=== PATIENT | male | born 1970 | race Caucasian/White ===

== ENCOUNTER 2018-10-25 02:25 | Inpatient (IN) | payer MEDICAID ==
[~2018-10-25] VITALS: Ht 176.5 cm; Wt 95.3 kg
[2018-10-25 02:25] VITALS: BP_SYST 154
[~2018-10-25 02:25] MED LIST: ALPR1TAB2 PO; BENA40TA8 PO; HYDR25TA4 PO
[2018-10-25] MEDS ORDERED: FUROSEMIDE 20 MG TABLET PO ONE (06:45)
[2018-10-25 07:01] LABS: HEMOGLOBIN 14.7 g/dL (14.0-18.0); WHITE BLOOD COUNT (AUTO) 3.1 K/uL (4.8-10.8)
[2018-10-25 07:08] LABS: HEMATOCRIT 41.9 % (36-54); MEAN CORPUSCULAR HEMOGLOBIN 34 pg (27-31); MEAN CORPUSCULAR HGB CONC 35 % (32-36); MEAN CORPUSCULAR VOLUME 98 fL (79.0-98.0); RED BLOOD CELL COUNT(AUTO) 4.27 MIL/uL (4.2-6.2); RED CELL DISTRIBUTION WIDTH 14.6 % (9.0-15.0)
[2018-10-25 07:12] LABS: PLATELET COUNT (AUTO) 42 K/uL (130-430)
[2018-10-25 07:19] LABS: ALBUMIN 3.4 g/dL (3.4-4.8); CALCIUM 8.4 mg/dL (8.4-11.0); CREATININE 0.58 mg/dL (0.55-1.30); POTASSIUM 3.3 mmol/L (3.5-5.1); TOTAL BILIRUBIN 5.7 mg/dL (0.0-1.0)
[2018-10-25 07:45] LABS: BASOPHILS % (MANUAL) 0 % (0-2); EOSINOPHILS % (MANUAL) 2 % (0-7); LYMPHOCYTES % (MANUAL) 32 % (20-46); MONOCYTES % (MANUAL) 6 % (0-11)
[2018-10-25 09:00] VITALS: BP_SYST 146
[2018-10-25] MEDS ORDERED: ONDANSETRON HCL 4 MG/2 ML VIAL IVP PRN (10:00)
[2018-10-25] MEDS ORDERED: ACETAMINOPHEN 325 MG TABLET PO PRN (10:00)
[2018-10-25] MEDS ORDERED: POTASSIUM CHLORIDE 20 MEQ TAB.PRT.SR PO ONE (10:00)
[2018-10-25] MEDS ORDERED: ALPRAZolam 0.25 MG TABLET PO SCH (10:15)
[2018-10-25] MEDS: CEPHALEXIN 500 MG CAPSULE PO SCH ×2 (11:07→18:19)
[2018-10-25 11:40] VITALS: BP_SYST 142
[2018-10-25 16:03] VITALS: BP_SYST 140
[2018-10-25 20:00] VITALS: BP_SYST 143
[2018-10-25] MEDS: FUROSEMIDE 20 MG TABLET PO SCH (20:27)
[2018-10-25] MEDS: HYDROcodone/ACETAMIN 5-325 MG TAB (NORCO/ VICODIN) PO PRN (20:31)
[2018-10-26] VITALS: BP_SYST 153
[2018-10-26] MEDS: CEPHALEXIN 500 MG CAPSULE PO SCH ×3 (00:05→11:44)
[2018-10-26 06:58] LABS: ALBUMIN 3.2 g/dL (3.4-4.8); CALCIUM 8.2 mg/dL (8.4-11.0); CREATININE 0.51 mg/dL (0.55-1.30); POTASSIUM 3.6 mmol/L (3.5-5.1); TOTAL BILIRUBIN 7.3 mg/dL (0.0-1.0)
[2018-10-26 07:45] VITALS: BP_SYST 152
[2018-10-26 07:52] LABS: BASOPHILS % (AUTO) 0.7 % (0.0-2.0); EOSINOPHILS # (AUTO) 0.1 K/uL (0.0-0.4); HEMATOCRIT 40.9 % (36-54); HEMOGLOBIN 14.3 g/dL (14.0-18.0); LYMPHOCYTES # (AUTO) 0.7 K/uL (1.0-5.5); LYMPHOCYTES % (AUTO) 19.8 % (20.5-51.5); MEAN CORPUSCULAR HEMOGLOBIN 35 pg (27-31); MEAN CORPUSCULAR HGB CONC 35 % (32-36); MEAN CORPUSCULAR VOLUME 99 fL (79.0-98.0); MONOCYTES # (AUTO) 0.4 K/uL (0.0-1.0); MONOCYTES % (AUTO) 11.7 % (1.7-9.3); NEUTROPHILS # (AUTO) 2.4 K/uL (1.8-7.7); RED BLOOD CELL COUNT(AUTO) 4.14 MIL/uL (4.2-6.2); RED CELL DISTRIBUTION WIDTH 14.4 % (9.0-15.0); WHITE BLOOD COUNT (AUTO) 3.7 K/uL (4.8-10.8)
[2018-10-26 08:06] LABS: NEUTROPHILS % (AUTO) 63.8 % (40.0-70.0); PLATELET COUNT (AUTO) 45 K/uL (130-430)
[2018-10-26] MEDS: HYDROcodone/ACETAMIN 5-325 MG TAB (NORCO/ VICODIN) PO PRN (08:51)
[2018-10-26] MEDS: FUROSEMIDE 20 MG TABLET PO SCH (08:52)
[2018-10-26] MEDS ORDERED: HYDROCHLOROTHIAZIDE 25 MG TABLET (HCTZ) PO SCH (09:00)
[2018-10-26] MEDS ORDERED: SPIRONOLACTONE 25 MG TABLET (ALDACTONE) PO SCH (09:00)
[2018-10-26] MEDS ORDERED: LISINOPRIL 20 MG TABLET PO SCH (09:00)
[2018-10-26 09:18] LABS: TOTAL IRON BIND. CAPACITY 281 ug/dL (250-450)
[2018-10-26 11:04] LABS: INR 1.2 (0.80-1.20); PROTHROMBIN TIME 12.6 SECS (9.5-12.5)
[2018-10-26 14:27] VITALS: BP_SYST 126
[2018-10-26 16:19] VITALS: BP_SYST 146
[2018-10-26 17:17] VITALS: BP_SYST 146
[2018-10-27 03:10] LABS: HEPATITIS A AB, IgM Negative (Negative); HEPATITIS B CORE AB, IgM Negative (Negative); HEPATITIS B SURFACE AG Negative (Negative)
[2018-10-27 08:42] LABS: AFP, TUMOR MARKER 2.5 ng/mL (0.0-8.3)
[2018-10-28 05:37] LABS: CERULOPLASMIN 19.3 mg/dL (16.0-31.0)
[2018-10-28 11:06] LABS: ANTI-SMOOTH MUSCLE AB 5 Units (0-19)
[2018-10-28 13:15] LABS: FERRITIN 184 ng/mL (30-400)
== END 2018-10-26 18:42 | disposition home or self-care (01) | DRG 383 ==
LOC: SED 02:25 → STU 07:56 → SMU 10:28
PROVIDERS: ADMIT Internal Medicine; ATTEND Internal Medicine
DX: L03.116 Cellulitis of left lower limb (principal); D69.6 Thrombocytopenia, unspecified; K74.60 Unspecified cirrhosis of liver; L03.115 Cellulitis of right lower limb; F10.20 Alcohol dependence, uncomplicated; F41.9 Anxiety disorder, unspecified; I10 Essential (primary) hypertension; Z79.899 Other long term (current) drug therapy; K76.89 Other specified diseases of liver
CPT/HCPCS: 36415; 76700-TC; 80053; 80074; 82105; 82140-TC; 82390; 82728; 83516; 83540-TC; 83550-TC; 85007; 85025; 85027; 85610-TC; 93306; 93970; 99285

== ENCOUNTER 2018-12-12 04:59 | Emergency (ER) | payer MEDICAID ==
[~2018-12-12] VITALS: Ht 175.3 cm; Wt 94.3 kg
[2018-12-12 05:05] VITALS: BP_SYST 157
[2018-12-12 07:32] LABS: BASOPHILS % (AUTO) 0.5 % (0.0-2.0); EOSINOPHILS # (AUTO) 0.1 K/uL (0.0-0.4); EOSINOPHILS % (AUTO) 2.5 % (0.0-4.0); HEMATOCRIT 44.1 % (36-54); HEMOGLOBIN 15.5 g/dL (14.0-18.0); LYMPHOCYTES # (AUTO) 0.9 K/uL (1.0-5.5); LYMPHOCYTES % (AUTO) 20.7 % (20.5-51.5); MEAN CORPUSCULAR HEMOGLOBIN 35 pg (27-31); MEAN CORPUSCULAR HGB CONC 35 % (32-36); MEAN CORPUSCULAR VOLUME 100 fL (79.0-98.0); MONOCYTES # (AUTO) 0.5 K/uL (0.0-1.0); MONOCYTES % (AUTO) 12.5 % (1.7-9.3); NEUTROPHILS # (AUTO) 2.7 K/uL (1.8-7.7); NEUTROPHILS % (AUTO) 63.8 % (40.0-70.0); RED BLOOD CELL COUNT(AUTO) 4.41 MIL/uL (4.2-6.2); WHITE BLOOD COUNT (AUTO) 4.2 K/uL (4.8-10.8)
[2018-12-12 07:35] LABS: CREATININE 0.69 mg/dL (0.55-1.30); POTASSIUM 3.9 mmol/L (3.5-5.1)
[2018-12-12 07:39] LABS: ALBUMIN 3.5 g/dL (3.4-4.8); TOTAL BILIRUBIN 2.9 mg/dL (0.0-1.0)
[2018-12-12 08:30] LABS: PLATELET COUNT (AUTO) 53 K/uL (130-430)
--- NOTE | 2018-12-12 08:32 | NUR ---
Patient advised admitting that he was LWBS at this time.
== END 2018-12-12 08:32 | disposition left against medical advice (07) ==
LOC: SED 04:59
DX: M79.669 Pain in unspecified lower leg (principal)
CPT/HCPCS: 36415; 80053; 85025; 85379; 99281

== ENCOUNTER 2019-01-05 22:41 | Emergency (ER) | payer MEDICAID ==
[~2019-01-05] VITALS: Ht 175.3 cm; Wt 94.3 kg
[2019-01-05] MEDS ORDERED: NACL 0.9% 1,000 ML IV ONE (22:44)
[2019-01-05] MEDS ORDERED: MORPHINE 4 MG/ML INJ. SYRINGE IVP ONE (22:45)
[2019-01-05] MEDS ORDERED: ONDANSETRON HCL 4 MG/2 ML VIAL IVP ONE (22:45)
[2019-01-05 23:00] VITALS: BP_SYST 110
--- NOTE | 2019-01-05 23:04 | NUR ---
Patient to ER bed 06 to gown for evaluation. Side rails up. Report given to ROLA Elizabeth.
--- NOTE | 2019-01-05 23:05 | NUR ---
Pt complains of left lower abdominal pain that started today. Pt states he felt nauseous earlier but has not vomited. Per patient he had diarrhea yesterday and this morning but no signs of blood in stool. Pt states he felt "a little pressure while peeing and had night sweats since last night." No other injuries/complaints per patient or noted.
--- NOTE | 2019-01-05 23:06 | NUR ---
ER MD Worthington at bedside for medical evaluation.
--- NOTE | 2019-01-05 23:10 | NUR ---
# 18 gauge angiocath placed to LAC. Use of asceptic technique. Opsite placed over site. Blood return noted. Blood for lab drawn from site. Flushed with 10 cc of normal saline. No evidence of infiltration noted. Patient tolerated well.
[2019-01-05 23:31] LABS: BASOPHILS % (AUTO) 0.4 % (0.0-2.0); EOSINOPHILS # (AUTO) 0.2 K/uL (0.0-0.4); EOSINOPHILS % (AUTO) 3.1 % (0.0-4.0); HEMATOCRIT 44.7 % (36-54); LYMPHOCYTES # (AUTO) 1.3 K/uL (1.0-5.5); LYMPHOCYTES % (AUTO) 22.2 % (20.5-51.5); MEAN CORPUSCULAR HEMOGLOBIN 35 pg (27-31); MEAN CORPUSCULAR HGB CONC 36 % (32-36); MEAN CORPUSCULAR VOLUME 98 fL (79.0-98.0); MONOCYTES # (AUTO) 0.6 K/uL (0.0-1.0); MONOCYTES % (AUTO) 10.9 % (1.7-9.3); NEUTROPHILS # (AUTO) 3.6 K/uL (1.8-7.7); NEUTROPHILS % (AUTO) 63.4 % (40.0-70.0); PLATELET COUNT (AUTO) 58 K/uL (130-430); RED BLOOD CELL COUNT(AUTO) 4.55 MIL/uL (4.2-6.2); RED CELL DISTRIBUTION WIDTH 14.1 % (9.0-15.0); WHITE BLOOD COUNT (AUTO) 5.7 K/uL (4.8-10.8)
--- NOTE | 2019-01-05 23:39 | NUR ---
patient went to radiology in stable condition.
[2019-01-05 23:51] LABS: CALCIUM 8.4 mg/dL (8.4-11.0); CREATININE 0.73 mg/dL (0.55-1.30)
--- NOTE | 2019-01-05 23:52 | NUR ---
patient returned from radiology in stable condition.
[2019-01-05 23:57] LABS: ALBUMIN 3.6 g/dL (3.4-4.8); TOTAL BILIRUBIN 2.9 mg/dL (0.0-1.0)
[2019-01-06 00:36] LABS: INR 1.1 (0.80-1.20); PROTHROMBIN TIME 11.4 SECS (9.5-12.5)
--- NOTE | 2019-01-06 00:36 | NUR ---
Pt sleeping comfortably in hospital bed. No acute distress, will continue to monitor.
[2019-01-06 00:41] LABS: BILIRUBIN,URINE NEGATIVE (NEGATIVE); BLOOD, URINE NEGATIVE (NEGATIVE); CLARITY/URINE CLEAR (CLEAR); COLOR,URINE YELLOW (YELLOW); GLUCOSE,URINE NEGATIVE (NEGATIVE); KETONES,URINE NEGATIVE (NEGATIVE); LEUKOCYTE ESTERASE ,URINE NEGATIVE (NEGATIVE); NITRITE, URINE NEGATIVE (NEGATIVE); PH,URINE 5.5 (5.0-8.0); PROTEIN URINE NEGATIVE (NEGATIVE); UROBILINOGEN,URINE 0.2 (0.2-1.0)
--- NOTE | 2019-01-06 01:45 | NUR ---
Pt resting comfortably in hospital bed. NO acute distress, will continue to monitor.
--- NOTE | 2019-01-06 02:22 | NUR ---
Pt sleeping comfortably in hospital bed. NO acute distress, rise and fall of chest is symmetrical. Will continue to monitor.
[2019-01-06 03:30] VITALS: BP_SYST 113
--- NOTE | 2019-01-06 03:30 | NUR ---
Patient given written and verbal discharge instructions and verbalizes understanding. ER MD discussed with patient the results and treatment provided. Patient in stable condition. ID arm band removed. IV catheter removed intact and dressing applied, no active bleeding. Rx of Tylenol with Codeine and Zofran given. Patient educated on pain management and to follow up with PMD. Pain Scale 0. Opportunity for questions provided and answered. Medication side effect fact sheet provided.
== END 2019-01-06 03:30 | disposition home or self-care (01) ==
LOC: SED 22:41
DX: K57.90 Diverticulosis of intestine, part unspecified, without perforation or abscess without bleeding (principal); K80.80 Other cholelithiasis without obstruction; K74.60 Unspecified cirrhosis of liver; I10 Essential (primary) hypertension; Z79.899 Other long term (current) drug therapy
CPT/HCPCS: 36415; 71045; 74176; 80053; 81003; 82150; 82550; 83605; 83690; 84484; 85025; 85610; 85730; 87040; 93005; 96361; 96374; 96375; 99284; J2270; J2405; J7030

== ENCOUNTER 2019-01-22 03:59 | Inpatient (IN) | payer MEDICAID ==
[2019-01-22] VITALS (7 sets, daily range): BP systolic 122–148
[~2019-01-22] VITALS: Ht 175.3 cm; Wt 92.1 kg
[2019-01-22] MEDS ORDERED: NACL 0.9% 1,000 ML IV ONE (04:41)
[2019-01-22] MEDS ORDERED: MORPHINE 4 MG/ML INJ. SYRINGE IVP ONE (05:15)
[2019-01-22] MEDS ORDERED: ONDANSETRON HCL 4 MG/2 ML VIAL IVP ONE (05:15)
[2019-01-22 05:37] LABS: WHITE BLOOD COUNT (AUTO) 5.7 K/uL (4.8-10.8)
[2019-01-22 05:41] LABS: HEMOGLOBIN 15.8 g/dL (14.0-18.0); MEAN CORPUSCULAR HEMOGLOBIN 35 pg (27-31); MEAN CORPUSCULAR HGB CONC 35 % (32-36); MEAN CORPUSCULAR VOLUME 100 fL (79.0-98.0); PLATELET COUNT (AUTO) 55 K/uL (130-430); RED BLOOD CELL COUNT(AUTO) 4.52 MIL/uL (4.2-6.2); RED CELL DISTRIBUTION WIDTH 13.2 % (9.0-15.0)
[2019-01-22 05:51] LABS: CALCIUM 8.6 mg/dL (8.4-11.0); CREATININE 0.82 mg/dL (0.55-1.30); POTASSIUM 4.1 mmol/L (3.5-5.1)
[2019-01-22 05:52] LABS: ATYPICAL LYMPHOCYTES % 0 % (0-0); BAND % (MANUAL) 0 % (0-6); BASOPHILS % (MANUAL) 0 % (0-2)
[2019-01-22 05:54] LABS: INR 1.2 (0.80-1.20); PROTHROMBIN TIME 12.1 SECS (9.5-12.5)
[2019-01-22 05:57] LABS: ALBUMIN 3.4 g/dL (3.4-4.8); TOTAL BILIRUBIN 2.8 mg/dL (0.0-1.0)
[2019-01-22 07:26] LABS: BILIRUBIN,URINE NEGATIVE (NEGATIVE); BLOOD, URINE NEGATIVE (NEGATIVE); CLARITY/URINE CLEAR (CLEAR); COLOR,URINE YELLOW (YELLOW); GLUCOSE,URINE NEGATIVE (NEGATIVE); KETONES,URINE NEGATIVE (NEGATIVE); LEUKOCYTE ESTERASE ,URINE NEGATIVE (NEGATIVE); NITRITE, URINE NEGATIVE (NEGATIVE); PROTEIN URINE NEGATIVE (NEGATIVE); UROBILINOGEN,URINE 0.2 (0.2-1.0)
[2019-01-22] MEDS ORDERED: LISI10TA5 PO (07:56)
[2019-01-22] MEDS ORDERED: VITD2000 PO (07:56)
[2019-01-22] MEDS ORDERED: SPIR50TA5 PO (07:56)
[2019-01-22 09:07] LABS: LYMPHOCYTES % (MANUAL) 11 % (20-46)
[2019-01-22 09:08] LABS: EOSINOPHILS % (MANUAL) 0 % (0-7); MONOCYTES % (MANUAL) 8 % (0-11)
[2019-01-22] MEDS ORDERED: PANTOPRAZOLE SODIUM 40 MG/VIAL (PROTONIX) IVP ONE (10:30)
[2019-01-22] MEDS: MORPHINE 2 MG/ML INJ. SYRINGE IVP PRN ×2 (18:36→21:40)
[2019-01-22] MEDS ORDERED: ONDANSETRON HCL 4 MG/2 ML VIAL IVP SCH (22:00)
[2019-01-22] MEDS ORDERED: MORPHINE 4 MG/ML INJ. SYRINGE IVP SCH (22:00)
[2019-01-23 00:32] VITALS: BP_SYST 128
[2019-01-23 08:00] VITALS: BP_SYST 97
[2019-01-23] MEDS ORDERED: PANTOPRAZOLE SODIUM 40 MG/VIAL (PROTONIX) IVP SCH (09:00)
[2019-01-23] MEDS ORDERED: METR500T PO (09:55)
[2019-01-23] MEDS ORDERED: LEVAQUIN PO (09:56)
[2019-01-23] MEDS ORDERED: LACT1CAP57 PO (09:56)
[2019-01-23] MEDS ORDERED: TRAMADOL PO (09:57)
[2019-01-23 10:08] VITALS: BP_SYST 108
== END 2019-01-23 10:45 | disposition home or self-care (01) | DRG 244 ==
LOC: SED 03:59 → SMU 09:17
PROVIDERS: ADMIT Internal Medicine Hospice and Palliative Medicine; ATTEND Internal Medicine Hospice and Palliative Medicine
DX: K57.92 Diverticulitis of intestine, part unspecified, without perforation or abscess without bleeding (principal); K74.60 Unspecified cirrhosis of liver; K80.70 Calculus of gallbladder and bile duct without cholecystitis without obstruction; E11.9 Type 2 diabetes mellitus without complications; I83.90 Asymptomatic varicose veins of unspecified lower extremity; F10.10 Alcohol abuse, uncomplicated
CPT/HCPCS: 36415; 76700-TC; 78226; 80053; 81003; 82150-TC; 83690-TC; 85007; 85027; 85610-TC; 96374; 96375; 99285; A9537; C9113; J2270; J2405

== ENCOUNTER 2019-05-02 19:39 | Inpatient (IN) | payer MEDICAID ==
[~2019-05-02] VITALS: Ht 177.8 cm; Wt 89.5 kg
[~2019-05-02 19:39] MED LIST changes: -ALPR1TAB2 PO; -BENA40TA8 PO; +LACT1CAP57 PO; +LEVAQUIN PO; +LISI10TA5 PO; +METR500T PO; +SPIR50TA5 PO; +TRAMADOL PO; +VITD2000 PO
[2019-05-02 20:56] VITALS: BP_SYST 147
--- NOTE | 2019-05-02 21:03 | NUR ---
Pt placed to ER waiting room in stable condition.
--- NOTE | 2019-05-02 21:10 | NUR ---
Received patient from triage, aaox3, cc abd llq pain, feeling malaise, and at times experiencing confusion, pt. with a Hx of Splenomegally. patient placed in a gown, clothes in belongings bag, comfort meassures- covered w/ a warm blanket. At present states pain level is 2/10. Pending ER MD valenzuela.
--- NOTE | 2019-05-02 21:40 | NUR ---
Patient seen HafsaJALEN BOBO at bedside.
--- NOTE | 2019-05-02 21:45 | NUR ---
SR ON MONITOR AT 89
[2019-05-02] MEDS ORDERED: MORPHINE 4 MG/ML INJ. SYRINGE IVP ONE (22:15)
--- NOTE | 2019-05-02 22:45 | NUR ---
DR YUN CALLED W/ ADMIT ORDERS. PENDING BED DISPOSITION.
[2019-05-02 22:50] LABS: CALCIUM 8.2 mg/dL (8.4-11.0); CREATININE 0.52 mg/dL (0.55-1.30); POTASSIUM 3.3 mmol/L (3.5-5.1)
[2019-05-02 22:51] LABS: HEMATOCRIT 44.8 % (36-54); HEMOGLOBIN 16.1 g/dL (14.0-18.0); MEAN CORPUSCULAR HEMOGLOBIN 35 pg (27-31); MEAN CORPUSCULAR HGB CONC 36 % (32-36); MEAN CORPUSCULAR VOLUME 98 fL (79.0-98.0); RED BLOOD CELL COUNT(AUTO) 4.56 MIL/uL (4.2-6.2); RED CELL DISTRIBUTION WIDTH 13.6 % (9.0-15.0); WHITE BLOOD COUNT (AUTO) 3.8 K/uL (4.8-10.8)
[2019-05-02 22:53] LABS: INR 1.3 (0.80-1.20)
[2019-05-02 22:55] LABS: ALBUMIN 3.9 g/dL (3.4-4.8); TOTAL BILIRUBIN 4.9 mg/dL (0.0-1.0)
[2019-05-02 22:58] LABS: PLATELET COUNT (AUTO) 36 K/uL (130-430)
[2019-05-02 23:01] LABS: PROTHROMBIN TIME 13.1 SECS (9.5-12.5)
[2019-05-02 23:23] LABS: EOSINOPHILS % (MANUAL) 4 % (0-7); LYMPHOCYTES % (MANUAL) 15 % (20-46); MONOCYTES % (MANUAL) 10 % (0-11)
[2019-05-02 23:24] LABS: BASOPHILS % (MANUAL) 0 % (0-2)
--- NOTE | 2019-05-02 23:45 | NUR ---
PATIENT ASLEEP NAD NOTED. VOICES NO C/O PAIN OR DISCOMFORT. PENDING ADMIT BED ASSIGNMENT.
[2019-05-03] VITALS (7 sets, daily range): BP systolic 134–162
[2019-05-03] MEDS ORDERED: ALBUTEROL SULFATE 0.083% 2.5 MG/3 ML VIAL.NEB INH PRN
[2019-05-03] MEDS ORDERED: MORPHINE 2 MG/ML INJ. SYRINGE IVP PRN
[2019-05-03] MEDS ORDERED: ONDANSETRON HCL 4 MG/2 ML VIAL IVP PRN
--- NOTE | 2019-05-03 01:40 | NUR ---
Patient asleep voices no c/o pain or discomfort. VS stable.
--- NOTE | 2019-05-03 01:42 | NUR ---
ER CALLED FOR BED ASSIGNMENT FOR THIS PT (FIRST TIME). ROOM 129 B GIVEN .
--- NOTE | 2019-05-03 02:22 | NUR ---
REPORT CALLED TO NURSE ERAZO. Patient will be admitted to care of ROLA Erazo. Admitted to MST unit. Will go to room 129. Belongings with patient. Complete and up to date summary report printed. SBAR report given via telephone with opportunity for questions.
[2019-05-03] MEDS ORDERED: PANTOPRAZOLE SODIUM 40 MG TAB PO SCH (02:30)
[2019-05-03] MEDS ORDERED: POTASSIUM CHLORIDE 20 MEQ TAB.PRT.SR PO SCH (02:30)
[2019-05-03] MEDS ORDERED: RIFAXIMIN 550 MG TABLET PO SCH (02:30)
--- NOTE | 2019-05-03 02:30 | NUR ---
admission note.pt.received via the er-dept.pt.presented admit dx;abdomen pain.pt.presents affect;quiescent;calm.loc;a/o x4. no c/o pain,nausea @this hour.pt.independent w/adls;pt.capable to ambulate w/out assistance;gait steady upon assessment. pt.presents v/s:values w/in normal limits.pt. presents iv access;location;rt.bicept.diet status;regular.i have apprised the pt. that i may provide snacks/beverages w/in the shift.pt.had requested snacks.i have provided the snacks/beverages.toiletries. general status stable.respiratory status stable;unlabored @room air;02-sat%=98%,call light/telephone provided to the pt. pt.had been admitted to [facility] :similar admit dx.
[2019-05-03] MEDS ORDERED: FLU VACC QS2019-20 36MOS UP/PF 60 MCG/0.5 ML SYRINGE I.M. PRN (04:15)
[2019-05-03] MEDS: MORPHINE 4 MG/ML INJ. SYRINGE IVP PRN ×2 (04:20→18:12)
--- NOTE | 2019-05-03 04:30 | NUR ---
pt.assessed.pt.had requested medication pain,i have administered [id number] ivp.to f/u re;pain medication efficacy per pain mgx protocol no additional requests [email or web address] W/IN REACH OF THE PT.
--- NOTE | 2019-05-03 06:00 | NUR ---
pt.assessed.pt.presents quiescent affect;calm,somnolent.general status stable.respiratory status stable;unlabored. pt.capable to reposition self.call light/telephone w/in reach of the pt.
[2019-05-03 06:07] LABS: INR 1.3 (0.80-1.20); PROTHROMBIN TIME 12.9 SECS (9.5-12.5)
--- NOTE | 2019-05-03 07:14 | NUR ---
GI consult called: for Dr. Mendoza (Dr. Shearer connie scratcher), regarding cirhosis, ordered by Dr. Pretty, spoke with Carol.
[2019-05-03 07:15] LABS: POTASSIUM 3.3 mmol/L (3.5-5.1)
[2019-05-03 07:16] LABS: CALCIUM 7.9 mg/dL (8.4-11.0); CREATININE 0.66 mg/dL (0.55-1.30); TOTAL BILIRUBIN 4.8 mg/dL (0.0-1.0)
[2019-05-03 07:17] LABS: ALBUMIN 3.6 g/dL (3.4-4.8)
[2019-05-03 07:50] LABS: BASOPHILS % (AUTO) 0.5 % (0.0-2.0); EOSINOPHILS # (AUTO) 0.1 K/uL (0.0-0.4); HEMATOCRIT 43.1 % (36-54); LYMPHOCYTES # (AUTO) 0.6 K/uL (1.0-5.5); LYMPHOCYTES % (AUTO) 20.7 % (20.5-51.5); MEAN CORPUSCULAR HEMOGLOBIN 35 pg (27-31); MEAN CORPUSCULAR HGB CONC 35 % (32-36); MEAN CORPUSCULAR VOLUME 99 fL (79.0-98.0); MONOCYTES # (AUTO) 0.3 K/uL (0.0-1.0); NEUTROPHILS % (AUTO) 64.8 % (40.0-70.0); RED BLOOD CELL COUNT(AUTO) 4.34 MIL/uL (4.2-6.2)
[2019-05-03] MEDS: LACTULOSE 20 GM/30 ML UDC PO SCH ×4 (09:00→20:54)
[2019-05-03] MEDS: metroNIDAZOLE 500 MG TABLET PO SCH ×5 (09:00→20:54)
[2019-05-03] MEDS: LEVOFLOXACIN 500 MG TABLET PO SCH (09:01)
[2019-05-03] MEDS: LISINOPRIL 10 MG TABLET (PRINIVIL) PO SCH (09:02)
[2019-05-03] MEDS: FOLIC ACID 1 MG TABLET PO SCH (09:03)
[2019-05-03] MEDS: THIAMINE HCL 100 MG TABLET PO SCH (09:05)
[2019-05-03] MEDS: RIFAXIMIN 550 MG TABLET PO SCH ×2 (09:05→20:54)
[2019-05-03] MEDS: SPIRONOLACTONE 50 MG TABLET (ALDACTONE) PO SCH (09:06)
--- NOTE | 2019-05-03 12:20 | NUR ---
SS Note: CARPET CLEANING TECHNICIAN was referred by nursing to see pt for homelessness and DCPA. Demographic info update (phone # [phone]) CARPET CLEANING TECHNICIAN met with patient at bedside. Pt is alert and oriented x4 (person, place, time and situation) and has good eye contact. Pt appeared to be disheveled and mood appeared to be discouraged and frustrated, stating "there is no help for people like us". Pt's speech was normal with affect as being appropriate. Pt is independent with ADLs and no DME. Pt is a 49 y/o single male who came in via ED. Pt has been homeless for 6 months now and prior to that was renting a room. 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 Pt states he is independent with ADL's and does not use any DME. Pt states his only source of income now is $10-$15/day. Pt states he is scheduled to see his [employer] worker on May 05 and "can't miss that appointment, otherwise they'll discontinue my Medi[employer]" (CARPET CLEANING TECHNICIAN notified nurse Zandra to gordy BOBO). Pt states he is scheduled for a vascular surgery on his left leg on May 24, outpatient basis in [place], but will have a problem with his recovery due to homelessness. 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 Pt states his insurance denied to authorize Rehab stay after surgery (surgery is outpatient). Pt states "[employer]" are working on getting him disability and is helping him advocate for himself and his current needs/situation. Pt states he does not have history of mental health and denies suicidal ideation/homicidal ideation. Pt states he takes "tons of Tylenol" and has not had a drink in "6 months". Pt states he finds support from "God" and his adventism. 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 Pt has a daughter, who "has a lot on her plate as well", and 2 other young children who lives with their mother. Pt states he has a family in [place] and wishes to go to [place] when able. CARPET CLEANING TECHNICIAN provided pt with Outpatient Mental health, homeless assistance resource and homeless waiver (on chart). Pt states he has appropriate clothing for winter and is made aware of food and transportation prior to discharge. Pt opt out on receiving [facility] List. No further SS needs identified, but will remain available when needed.
[2019-05-03 12:29] LABS: PLATELET COUNT (AUTO) 36 K/uL (130-430)
--- NOTE | 2019-05-03 19:25 | NUR ---
OPENING NOTE RECEIVED CARE OF PT AND SBAR REPORT. PT IS AAOX4, RESTING IN BED. NO S/S OF ACUTE DISTRESS. BREATHING IS UNLABORED TO ROOM AIR. PT DENIES PAIN AT THIS TIME. PT REQUESTING A SLEEPING AID FOR TONIGHT. PT ENCOURAGED TO USE CALL LIGHT FOR ASSISTANCE. SAFETY PRECAUTIONS ARE IN PLACE. BED IS LOCKED IN LOWEST POSITION, SIDE RAILS UP X2, CALL LIGHT IS WITH PT. PT REFUSED BED ALARM, EDUCATION PROVIDED, PT CONTINUED TO REFUSE. WILL MONITOR.
[2019-05-03] MEDS ORDERED: TEMAZEPAM 15 MG CAPSULE PO ONE (20:00)
--- NOTE | 2019-05-03 21:00 | NUR ---
MEDICATION PASS SCHEDULED FLAGYL AND XIFAXAN ADMINISTERED. PT REFUSING LACTULOSE STATING "I DON'T WANT TO BE GETTING UP TO USE THE RESTROOM ALL NIGHT". PT EDUCATED REGARDING MEDICATION INDICATION, PT CONTINUED TO REFUSE STATING "I NEED TO SLEEP TONIGHT. RESTORIL MEDICATION ADMINISTERED ORDERED. MEDICATION AND POTENTIAL SIDE EFFECTS DISCUSSED, PT VERBALIZED UNDERSTANDING. PT BROUGHT FRESH ICE WATER AND CRANBERRY JUICE PER REQUEST. NO S/S OF DISTRESS. CALL LIGHT IS WITH PT. WILL MONITOR.
--- NOTE | 2019-05-03 23:05 | NUR ---
RESTING PT RESTING IN BED, NO S/S OF ACUTE DISTRESS, BREATHING IS EVEN AND UNLABORED TO ROOM AIR. SAFETY AND FALL PRECAUTIONS ARE IN PLACE. WILL MONITOR.
[2019-05-04 00:18] VITALS: BP_SYST 140
--- NOTE | 2019-05-04 01:15 | NUR ---
RN ROUNDS: PT RESTING IN BED WITH EYES CLOSED. VISIBLE SYMMETRICAL RISE AND FALL OF CHEST TO ROOM AIR, NO SOB NOTED. PT APPEARS COMFORTABLE AT THIS TIME. SAFETY MAINTAINED. WILL MONITOR.
--- NOTE | 2019-05-04 03:01 | NUR ---
SLEEPING PT SLEEPING IN BED, NO S/S OF DISTRESS, BREATHING IS EVEN AND UNLABORED TO ROOM AIR, NO SOB NOTED. F/C IS INTACT AND DRAINING TO GRAVITY. IVF INFUSING. SAFETY PRECAUTIONS MAINTAINED. WILL MONITOR.
[2019-05-04] MEDS: MORPHINE 4 MG/ML INJ. SYRINGE IVP PRN (03:23)
--- NOTE | 2019-05-04 03:25 | NUR ---
PAIN/MORPHINE PT REQUESTING MORPHINE FOR SEVERE PAIN. MORPHINE 2 MG IVP ADMINISTERED. PT NOW RESTING IN BED, NO S/S OF ACUTE DISTRESS. PT DENIES FURTHER NEEDS AT THIS TIME. SAFETY PRECAUTIONS MAINTAINED. WILL MONITOR.
--- NOTE | 2019-05-04 05:02 | NUR ---
RN NOTE PT WALKED TO NURSES STATION AND ASKED FOR A SODA. PT BROUGHT A COLA PER REQUEST. PT RESTING IN BED, DENIES FURTHER NEEDS AT THIS TIME. SAFETY MAINTAINED. WILL MONITOR.
--- NOTE | 2019-05-04 06:51 | NUR ---
CLOSING NOTE PT IS AAOX4, RESTING IN BED. NO S/S OF ACUTE DISTRESS. BREATHING IS UNLABORED TO ROOM AIR. PT DENIES PAIN AT THIS TIME. SAFETY PRECAUTIONS ARE IN PLACE. BED IS LOCKED IN LOWEST POSITION, SIDE RAILS UP X2, CALL LIGHT IS WITH PT. WILL ENDORSE PT CARE TO DAY SHIFT RN.
[2019-05-04 07:30] VITALS: BP_SYST 138
--- NOTE | 2019-05-04 08:00 | NUR ---
REceived pt in bed, pt is jonathan x4, denies pain, no sob. pt c/o of diarrhea, explained to him that it is induced diarrhea to lower his ammonia level. safety precaution in place. call light in reach, encouraged to call for assist and pain med and any concerns.
[2019-05-04] MEDS: metroNIDAZOLE 500 MG TABLET PO SCH (09:01)
[2019-05-04] MEDS: RIFAXIMIN 550 MG TABLET PO SCH (09:01)
[2019-05-04] MEDS: SPIRONOLACTONE 50 MG TABLET (ALDACTONE) PO SCH (09:01)
[2019-05-04] MEDS: THIAMINE HCL 100 MG TABLET PO SCH (09:01)
[2019-05-04] MEDS: LISINOPRIL 10 MG TABLET (PRINIVIL) PO SCH (09:02)
[2019-05-04] MEDS: LACTULOSE 20 GM/30 ML UDC PO SCH (09:02)
[2019-05-04] MEDS: FOLIC ACID 1 MG TABLET PO SCH (09:02)
[2019-05-04] MEDS: LEVOFLOXACIN 500 MG TABLET PO SCH (09:02)
--- NOTE | 2019-05-04 10:00 | NUR ---
Pt in bed, resting, no c/o pain. no sob.
[2019-05-04 12:08] VITALS: BP_SYST 120
--- NOTE | 2019-05-04 12:45 | NUR ---
D/C Patient Patient given medication reconciliation form and D/C instructions. Exit Care provided. Patient verbalized understanding. MD discussed with patient the results and treatment provided. Ambulatory with steady gait for discharge to home. Patient in stable condition, ID band removed. IV catheter removed, intact and dressing applied, no active bleeding. Rx of given. Patient educated on pain management. All belongings sent with patient. Patient instructed to go to his pharmacy to check for new prescription and follow up care with primary care physician.
--- NOTE | 2019-05-04 16:44 | NUR ---
Earlier received call from Mr Villalta and his friend Denise Rasmussen. they were asking about the prescription for Levaquin and Flagyl and Tramadol, which I thought Dr Willams eRX to [facility]. I verified with dr Willams and he said he did not sent erx for these medications and he may have just clicked them unintentionally. said to dc those the Levaquin and Flagyl and asked pt to call or get prescription for tramadol from his primary doctor. called denise rasmussen and md jose koo and told him that he does not need the po antibiotics and he can go to his pmd for rx for tramadol.
== END 2019-05-04 12:45 | disposition home or self-care (01) | DRG 280 ==
LOC: SED 19:39 → SMU 23:44
PROVIDERS: ADMIT Internal Medicine Hospice and Palliative Medicine; ATTEND Internal Medicine Hospice and Palliative Medicine
DX: K70.10 Alcoholic hepatitis without ascites (principal); K70.30 Alcoholic cirrhosis of liver without ascites; K72.90 Hepatic failure, unspecified without coma; D69.6 Thrombocytopenia, unspecified; K76.6 Portal hypertension; R65.10 Systemic inflammatory response syndrome (SIRS) of non-infectious origin without acute organ dysfunction; E87.6 Hypokalemia; I10 Essential (primary) hypertension; F17.210 Nicotine dependence, cigarettes, uncomplicated; Z82.49 Family history of ischemic heart disease and other diseases of the circulatory system; Z88.8 Allergy status to other drugs, medicaments and biological substances; Z79.899 Other long term (current) drug therapy
CPT/HCPCS: 36415; 71045; 76700-TC; 80053; 82140-TC; 83690-TC; 85007; 85025; 85027; 85610-TC; 85730-TC; 96374; 99285; J2270